=== PATIENT | female | born 1980 | race Caucasian/White ===

== ENCOUNTER 2022-12-04 08:08 | Outpatient (CLI) | payer OTHER, SELFPAY ==
--- NOTE | ~2022-12-04 | US_ITS ---
Pelvic ultrasound. Clinical History: Abnormal uterine bleeding Technique: Realtime transabdominal and transvaginal scanning of the pelvis was performed. Color flow Doppler and Doppler spectral analysis were performed. Findings: The uterus is anteverted. The endometrial stripe has a thickness of 10 mm. No focal mass i s identified. The right ovary measures 3.7 x 2.8 x 3.4 cm. Simple right ovarian cyst measures 2.9 cm in diameter. The left ovary measures 2.2 x 2.0 x 1.8 cm. No significant left ovarian or adnexal mass is seen. There is no evidence of free fluid in the cul de sac. Impression: 2.9 cm simple right ovarian cyst. Reviewed, dictated and finalized at location . Impression: 2.9 cm simple right ovarian cyst.
== END 2022-12-04 08:09 ==
LOC: MICIMG 08:09
PROVIDERS: PCP Advanced Practice Midwife; Visit Provider Advanced Practice Midwife
DX: N93.8 Other specified abnormal uterine and vaginal bleeding (principal); N83.201 Unspecified ovarian cyst, right side
CPT/HCPCS: 76856

== ENCOUNTER 2023-02-27 10:54 | Outpatient (CLI) | payer OTHER, SELFPAY ==
--- NOTE | ~2023-02-27 | US_ITS ---
EXAMINATION: US pelvic complete DATE: 02/27/2023 11:17 INDICATION: Follow-up right ovarian cyst Comparison:12/04/2022 TECHNIQUE: Multiple transabdominal sonographic images of the pelvis performed. FINDINGS: The uterus measures 8.7 x 4.3 x 4.7 cm. The endometrial complex measures 6 mm. The right ovary measures 2.2 x 2.7 x 3.4 cm and the left ovary measures 2.4 x 2 x 2.1 cm. There is a 2.1 cm cyst of the right ovary. Superior lateral to the ovary there is a 3.2 cm cyst. There are small follicles in each ovary. Normal doppler signal in both ovaries. There is no free fluid in the pelvis. There are no abnormal masses seen on either side. IMPRESSION: 1. Right adnexal cyst measuring 3.2 cm located superior lateral to the right ovary, possibly a perito daniel inclusion cyst. 2: Right ovarian cyst measuring 2.1 cm. Reviewed, dictated and finalized at location [facility]. [employer] IMPRESSION: 1. Right adnexal cyst measuring 3.2 cm located superior lateral to the right ov margie, possibly a peritoneal inclusion cyst. 2: Right ovarian cyst measuring 2.1 cm.
== END 2023-02-27 10:55 ==
PROVIDERS: PCP Obstetrics & Gynecology Gynecology; Visit Provider Obstetrics & Gynecology Gynecology
DX: N83.201 Unspecified ovarian cyst, right side (principal)
CPT/HCPCS: 76856